=== PATIENT | male | born 1985 | race Hispanic/Latino ===

== ENCOUNTER → 2018-03-25 | Outpatient (REF) | payer OTHER, MEDICAID ==
[2018-03-25 13:32] LABS: BASO # 0.1 10^3/uL (0.0-0.2); BASO % 1.1 % (0.0-1.0); EOS # 0.3 10^3/uL (0.0-0.50); EOS % 3.2 % (0.0-3.0); HEMATOCRIT 47.3 % (42.0-52.0); HEMOGLOBIN 15.7 g/dl (13.5-17.5); IMMATURE GRANULOCYTE % 1.1 % (0-3.0); LYMPH # 3.4 10^3/uL (1.5-4.5); LYMPH % 33.8 % (24.0-44.0); MEAN CORPUSCULAR HEMOGLOBIN 29.1 pg (27.0-33.0); MEAN CORPUSCULAR HGB CONC 33.2 g/dl (32.0-36.5); MEAN CORPUSCULAR VOLUME 87.8 fl (80.0-96.0); MONO # 0.8 10^3/uL (0.0-0.8); MONO % 7.5 % (0.0-5.0); NEUTROPHILS # 5.3 10^3/uL (1.8-7.7); NEUTROPHILS % 53.3 % (36.0-66.0); PLATELET COUNT, AUTOMATED 343 10^3/uL (150-450); RED BLOOD COUNT 5.39 10^6/uL (4.30-6.10); RED CELL DISTRIBUTION WIDTH 12.7 % (11.5-14.5)
[2018-03-25 13:43] LABS: ALBUMIN 4.4 GM/DL (3.2-5.2); ALBUMIN/GLOBULIN RATIO 1.22 (1.00-1.93); ALKALINE PHOSPHATASE 86 U/L (45-117); ALT/SGPT 25 U/L (12-78); ANION GAP 5 MEQ/L (8-16); AST/SGOT 21 U/L (7-37); BILIRUBIN,TOTAL 0.7 MG/DL (0.2-1.0); BLOOD UREA NITROGEN 17 MG/DL (7-18); CALCIUM LEVEL 9.4 MG/DL (8.5-10.1); CARBON DIOXIDE LEVEL 30 MEQ/L (21-32); CHLORIDE LEVEL 101 MEQ/L (98-107); CHOLESTEROL LEVEL 216 MG/DL (<200); CHOLESTEROL RISK RATIO 5.142 (<5); CREATININE FOR GFR 1.04 MG/DL (0.70-1.30); FREE T4 1.02 NG/DL (0.76-1.46); GLOMERULAR FILTRATION RATE > 60.0 (>60); GLUCOSE, FASTING 96 MG/DL (70-100); HDL CHOLESTEROL 42 MG/DL (>40); LDL CHOLESTEROL 116 MG/DL (<100); NON-HDL-C 174 MG/DL; POTASSIUM SERUM 4.5 MEQ/L (3.5-5.1); SODIUM LEVEL 136 MEQ/L (136-145); TRIGLYCERIDES LEVEL 288 MG/DL (<150)
[2018-03-25 13:45] LABS: HEPATITIS B SURFACE ANTIBODY POSITIVE (POSITIVE)
[2018-03-25 13:55] LABS: HEPATITIS B SURFACE ANTIGEN NEGATIVE (NEGATIVE)
[2018-03-25 14:23] LABS: ESTIMATED AVERAGE GLUCOSE 120 MG/DL (60-110); HEMOGLOBIN A1c 5.8 %; HEPATITIS C VIRUS ABY INDEX 0.1 INDEX (<0.8)
[2018-03-25 14:24] LABS: HIV 1&2 SCREEN CENTAUR NEGATIVE (NEGATIVE)
[2018-03-27 00:06] LABS: HEPATITIS C QUANTITATION HCV Not Detected IU/mL (.)
== END ==
LOC: M SFHCPLAZ 11:46
DX: F32.9 Major depressive disorder, single episode, unspecified (principal); I10 Essential (primary) hypertension; E66.9 Obesity, unspecified; Z72.51 High risk heterosexual behavior; Z20.5 Contact with and (suspected) exposure to viral hepatitis
CPT/HCPCS: 84443

== ENCOUNTER → 2018-07-06 | Outpatient (REF) | payer OTHER ==
[~2018-07-06] MED LIST: DEPA500T2 PO; Effexor XR PO; NO HOME MEDICATIONS; TRAZ100T2 PO
[2018-07-06 20:18] LABS: INFLUENZA A AMPLIFICATION NEGATIVE (NEGATIVE); INFLUENZA B AMPLIFICATION NEGATIVE (NEGATIVE)
== END ==
LOC: M LAB REF 09:27
PROVIDERS: ATTEND Nurse Practitioner Family
DX: J11.1 Influenza due to unidentified influenza virus with other respiratory manifestations (principal)

== ENCOUNTER 2019-12-15 16:33 | Emergency (ER) | payer MEDICAID, OTHER ==
[~2019-12-15] VITALS: Ht 170.2 cm; Wt 79.6 kg
[2019-12-15 16:34] VITALS: BP 138/95
== END 2019-12-15 17:24 | disposition home or self-care (01) ==
LOC: M ED 16:33
DX: Z53.21 Procedure and treatment not carried out due to patient leaving prior to being seen by health care provider (principal)

== ENCOUNTER → 2020-11-12 | Outpatient (CLI) | payer OTHER ==
[2020-11-12 13:43] LABS: HEMATOCRIT 45.6 % (42.0-52.0); HEMOGLOBIN 14.4 g/dl (13.5-17.5); MEAN CORPUSCULAR HEMOGLOBIN 28.5 pg (27.0-33.0); MEAN CORPUSCULAR HGB CONC 31.6 g/dl (32.0-36.5); MEAN CORPUSCULAR VOLUME 90.1 fl (80.0-96.0); PLATELET COUNT, AUTOMATED 370 10^3/uL (150-450); RED BLOOD COUNT 5.06 10^6/uL (4.30-6.10); WHITE BLOOD COUNT 10.9 10^3/uL (4.0-10.0)
[2020-11-12 14:06] LABS: ALBUMIN 3.7 GM/DL (3.2-5.2); ALT/SGPT 39 U/L (12-78); BILIRUBIN,TOTAL 0.4 MG/DL (0.2-1.0); BLOOD UREA NITROGEN 12 MG/DL (7-18); CALCIUM LEVEL 9.1 MG/DL (8.5-10.1); CARBON DIOXIDE LEVEL 34 MEQ/L (21-32); CHLORIDE LEVEL 102 MEQ/L (98-107); CREATININE FOR GFR 0.77 MG/DL (0.70-1.30); GLOMERULAR FILTRATION RATE > 60.0 (>60); GLUCOSE, FASTING 81 MG/DL (70-100); POTASSIUM SERUM 4.4 MEQ/L (3.5-5.1); SODIUM LEVEL 138 MEQ/L (136-145); TOTAL PROTEIN 7.1 GM/DL (6.4-8.2)
[2020-11-12 14:26] LABS: HEPATITIS B SURFACE ANTIGEN NEGATIVE (NEGATIVE)
[2020-11-12 14:55] LABS: HEPATITIS C VIRUS ABY INDEX 0.1 INDEX (<0.8); HIV 1&2 SCREEN CENTAUR NEGATIVE (NEGATIVE)
[2020-11-12 15:53] LABS: GC DNA AMPLIFICATION NEGATIVE (NEGATIVE)
--- NOTE | 2020-11-13 09:35 | ECGEPIP ---
[facility] Test Date: 2020-11-12 Pat Name: SALLY CORONA Department: Room: - Gender: Male Registered Dental Hygienist: mariam : 1985 Requested By: Yossi Savage Order Number: [id number] Reading MD: Pj Lomax Measurements Intervals [place] Rate: 56 P: 61 NE: 150 QRS: 45 QRSD: 80 T: 44 QT: 436 QTc: 420 Interpretive Statements Sinus bradycardia ST ELEV, PROBABLE NORMAL EARLY REPOL PATTERN No prior tracing in the system Electronically Signed on 11-13-2020 9:35:05 EDT by Pj Lomax
== END ==
LOC: M LAB 12:46
PROVIDERS: ATTEND Family Medicine
DX: F11.20 Opioid dependence, uncomplicated (principal)

== ENCOUNTER 2022-01-23 14:08 | Inpatient (IN) | payer MEDICAID, SELFPAY ==
[~2022-01-23] VITALS: Ht 170.2 cm; Wt 85.1 kg
[2022-01-23 15:00] LABS: HEMATOCRIT 45.7 % (42.0-52.0); HEMOGLOBIN 15.2 g/dl (13.5-17.5); MEAN CORPUSCULAR HEMOGLOBIN 29.1 pg (27.0-33.0); MEAN CORPUSCULAR HGB CONC 33.3 g/dl (32.0-36.5); MEAN CORPUSCULAR VOLUME 87.4 fl (80.0-96.0); PLATELET COUNT, AUTOMATED 327 10^3/uL (150-450); RED BLOOD COUNT 5.23 10^6/uL (4.30-6.10); WHITE BLOOD COUNT 13.8 10^3/uL (4.0-10.0)
[2022-01-23 15:40] LABS: RSV AMPLIFICATION NEGATIVE (NEGATIVE)
[2022-01-23 15:47] LABS: ACETAMINOPHEN LEVEL < 2.0 UG/ML (10.0-30.0); ALBUMIN 4.3 GM/DL (3.2-5.2); ALT/SGPT 32 U/L (12-78); BILIRUBIN,DIRECT 0.2 MG/DL (0.0-0.2); BILIRUBIN,TOTAL 0.7 MG/DL (0.2-1.0); BLOOD UREA NITROGEN 27 MG/DL (7-18); CALCIUM LEVEL 9.9 MG/DL (8.5-10.1); CARBON DIOXIDE LEVEL 29 MEQ/L (21-32); CHLORIDE LEVEL 102 MEQ/L (98-107); CREATININE FOR GFR 1.02 MG/DL (0.70-1.30); ETHYL ALCOHOL (ETHANOL) 0.008 % (0.000-0.010); GLOMERULAR FILTRATION RATE > 60.0 (>60); GLUCOSE, FASTING 105 MG/DL (70-100); POTASSIUM SERUM 4.2 MEQ/L (3.5-5.1); SALICYLATE LEVEL < 1.7 MG/DL (5.0-30.0); SODIUM LEVEL 135 MEQ/L (136-145); THYROID STIMULATING HORMONE 0.428 uIU/ML (0.358-3.740); TOTAL PROTEIN 7.8 GM/DL (6.4-8.2)
[2022-01-23 18:56] LABS: AMPHETAMINES LEVEL URINE POSITIVE (NEGATIVE); BARBITURATES URINE NEGATIVE (NEGATIVE); BENZODIAZEPINES URINE NEGATIVE (NEGATIVE); CANNABINOIDS URINE POSITIVE (NEGATIVE); COCAINE METABOLITE URINE NEGATIVE (NEGATIVE); METHADONE URINE NEGATIVE (NEGATIVE); OPIATES URINE NEGATIVE (NEGATIVE); PHENCYCLIDINE URINE NEGATIVE (NEGATIVE)
[2022-01-23] MEDS ORDERED: ACETAMINOPHEN TAB 650MG DOSE (2X325MG) PO PRN (19:45)
[2022-01-23] MEDS ORDERED: MOM 30ML SUSPENSION UDC PO PRN (19:45)
[2022-01-23] MEDS ORDERED: OLANZapine ORAL DISINTEGRATING TAB 5MG PO PRN (19:45)
[2022-01-23] MEDS ORDERED: MAALOX 30 ML SUSP *UDC PO PRN (19:45)
[2022-01-23] MEDS ORDERED: VITMTA PO (20:32)
[2022-01-23] MEDS ORDERED: TUMS500C PO (20:32)
[2022-01-23] MEDS ORDERED: ACET32TAB PO (20:32)
[2022-01-23] MEDS ORDERED: HOME MED LIST COMPLETE! XX SCH (20:35)
[2022-01-24 00:06] VITALS: BP 142/88
[2022-01-24 16:07] VITALS: BP 142/78
[2022-01-25 06:45] VITALS: BP 106/62
[2022-01-25 06:59] LABS: HEMATOCRIT 43.1 % (42.0-52.0); HEMOGLOBIN 13.7 g/dl (13.5-17.5); MEAN CORPUSCULAR HEMOGLOBIN 28.8 pg (27.0-33.0); MEAN CORPUSCULAR HGB CONC 31.8 g/dl (32.0-36.5); MEAN CORPUSCULAR VOLUME 90.7 fl (80.0-96.0); PLATELET COUNT, AUTOMATED 293 10^3/uL (150-450); RED BLOOD COUNT 4.75 10^6/uL (4.30-6.10); WHITE BLOOD COUNT 8.1 10^3/uL (4.0-10.0)
[2022-01-25] MEDS: LIDOCAINE 5% (LIDODERM) PATCH TD SCH (09:12)
[2022-01-25 16:29] VITALS: BP 137/72
[2022-01-25] MEDS: **NOTE PATIENT COMMENT** MISC XX SCH (21:25)
[2022-01-25] MEDS: OLANZapine 5 MG TAB PO SCH (21:26)
[2022-01-25] MEDS: traZODone 50 MG TAB PO PRN (21:26)
[2022-01-26 06:33] VITALS: BP 115/66
[2022-01-26] MEDS: OLANZapine 5 MG TAB PO SCH ×2 (09:15→22:08)
[2022-01-26] MEDS: LIDOCAINE 5% (LIDODERM) PATCH TD SCH (09:15)
[2022-01-26 18:47] VITALS: BP 140/67
[2022-01-26] MEDS: **NOTE PATIENT COMMENT** MISC XX SCH (21:00)
[2022-01-27 06:19] VITALS: BP 135/69
[2022-01-27] MEDS: LIDOCAINE 5% (LIDODERM) PATCH TD SCH (10:01)
[2022-01-27] MEDS: OLANZapine 5 MG TAB PO SCH (10:01)
[2022-01-27 16:12] VITALS: BP 142/77
[2022-01-27] MEDS: **NOTE PATIENT COMMENT** MISC XX SCH (21:18)
[2022-01-27] MEDS: OLANZapine 10 MG TAB PO SCH (21:18)
[2022-01-27] MEDS: traZODone 50 MG TAB PO PRN (21:19)
[2022-01-27] MEDS: hydrOXYzine 50 MG TAB PO PRN (21:19)
[2022-01-28 06:35] VITALS: BP 135/67
[2022-01-28] MEDS: LIDOCAINE 5% (LIDODERM) PATCH TD SCH (08:34)
[2022-01-28] MEDS: OLANZapine 5 MG TAB PO SCH (08:35)
[2022-01-28 08:48] LABS: CHOLESTEROL RISK RATIO 3.574 (<5)
[2022-01-28] MEDS: hydrOXYzine 50 MG TAB PO PRN (11:58)
[2022-01-28 16:23] VITALS: BP 144/88
[2022-01-28] MEDS: **NOTE PATIENT COMMENT** MISC XX SCH (20:02)
[2022-01-28] MEDS: OLANZapine 10 MG TAB PO SCH (20:03)
[2022-01-28] MEDS: traZODone 50 MG TAB PO PRN (22:41)
[2022-01-29 06:26] VITALS: BP 106/61
[2022-01-29] MEDS: OLANZapine 5 MG TAB PO SCH (08:41)
[2022-01-29] MEDS: LIDOCAINE 5% (LIDODERM) PATCH TD SCH (08:41)
[2022-01-29] MEDS: hydrOXYzine 50 MG TAB PO PRN (13:24)
[2022-01-29 16:15] VITALS: BP 136/72
[2022-01-29] MEDS: **NOTE PATIENT COMMENT** MISC XX SCH (20:43)
[2022-01-29] MEDS: OLANZapine 10 MG TAB PO SCH (20:45)
[2022-01-29] MEDS: traZODone 50 MG TAB PO PRN (20:45)
[2022-01-30 06:09] VITALS: BP 127/74
[2022-01-30] MEDS: LIDOCAINE 5% (LIDODERM) PATCH TD SCH (08:38)
[2022-01-30] MEDS: OLANZapine 5 MG TAB PO SCH (08:38)
[2022-01-30] MEDS: hydrOXYzine 50 MG TAB PO PRN (11:27)
[2022-01-30] MEDS: **NOTE PATIENT COMMENT** MISC XX SCH (12:23)
[2022-01-30 18:09] VITALS: BP 132/75
[2022-01-30] MEDS: OLANZapine 10 MG TAB PO SCH (20:26)
[2022-01-30] MEDS: traZODone 50 MG TAB PO PRN (22:17)
[2022-01-31 06:25] VITALS: BP 145/86
[2022-01-31] MEDS: OLANZapine 5 MG TAB PO SCH (09:14)
[2022-01-31] MEDS: LIDOCAINE 5% (LIDODERM) PATCH TD SCH (09:14)
[2022-01-31] MEDS: hydrOXYzine 50 MG TAB PO PRN (17:17)
[2022-01-31 18:07] VITALS: BP 141/83
[2022-01-31] MEDS: traZODone 50 MG TAB PO PRN (20:33)
[2022-01-31] MEDS: OLANZapine 10 MG TAB PO SCH (20:33)
[2022-01-31] MEDS: **NOTE PATIENT COMMENT** MISC XX SCH (20:38)
[2022-02-01 05:59] VITALS: BP 131/82
[2022-02-01] MEDS: LIDOCAINE 5% (LIDODERM) PATCH TD SCH (08:21)
[2022-02-01] MEDS: OLANZapine 5 MG TAB PO SCH (08:21)
[2022-02-01] MEDS: hydrOXYzine 50 MG TAB PO PRN (13:02)
[2022-02-01 17:51] VITALS: BP 136/61
[2022-02-01] MEDS: OLANZapine 10 MG TAB PO SCH (21:03)
[2022-02-01] MEDS: traZODone 50 MG TAB PO PRN (21:03)
[2022-02-01] MEDS: **NOTE PATIENT COMMENT** MISC XX SCH (21:04)
[2022-02-02 06:10] VITALS: BP 148/66
[2022-02-02] MEDS: LIDOCAINE 5% (LIDODERM) PATCH TD SCH (08:57)
[2022-02-02] MEDS: OLANZapine 5 MG TAB PO SCH (08:57)
[2022-02-02] MEDS: hydrOXYzine 50 MG TAB PO PRN (13:23)
[2022-02-02 18:12] VITALS: BP 150/74
[2022-02-02] MEDS: OLANZapine 10 MG TAB PO SCH (21:05)
[2022-02-02] MEDS: **NOTE PATIENT COMMENT** MISC XX SCH (21:59)
[2022-02-03 06:03] VITALS: BP 137/75
[2022-02-03] MEDS: OLANZapine 5 MG TAB PO SCH (08:50)
[2022-02-03] MEDS: LIDOCAINE 5% (LIDODERM) PATCH TD SCH (08:51)
[2022-02-03] MEDS ORDERED: TRAZ-252 PO (09:02)
[2022-02-03] MEDS ORDERED: OLAN1TAB16 PO (09:02)
[2022-02-03] MEDS ORDERED: OLAN1TAB20 PO (09:02)
[2022-02-03] MEDS ORDERED: LIDO5TD TD (09:02)
[2022-02-03] MEDS ORDERED: HYDR50TA70 PO (09:02)
[2022-02-03] MEDS: hydrOXYzine 50 MG TAB PO PRN (11:24)
== END 2022-02-03 14:17 | disposition home or self-care (01) | DRG 751 ==
LOC: M ED 14:08 → M ED INP 19:44 → M PSY 23:36
PROVIDERS: ADMIT Psychiatry & Neurology Psychiatry; ATTEND Psychiatry & Neurology Psychiatry
DX: F29 Unspecified psychosis not due to a substance or known physiological condition (principal); F22 Delusional disorders; F31.9 Bipolar disorder, unspecified; F60.2 Antisocial personality disorder; F43.10 Post-traumatic stress disorder, unspecified; F25.0 Schizoaffective disorder, bipolar type; Z20.822 Contact with and (suspected) exposure to COVID-19; R45.851 Suicidal ideations; R45.850 Homicidal ideations; Z91.51 Personal history of suicidal behavior; F17.210 Nicotine dependence, cigarettes, uncomplicated; G43.909 Migraine, unspecified, not intractable, without status migrainosus; F32.A Depression, unspecified; F41.9 Anxiety disorder, unspecified; K29.70 Gastritis, unspecified, without bleeding; M54.50 Low back pain, unspecified

== ENCOUNTER 2022-04-11 15:18 | Emergency (ER) | payer OTHER, SELFPAY ==
[~2022-04-11] VITALS: Ht 170.2 cm; Wt 85.5 kg
[~2022-04-11 15:18] MED LIST changes: +ACET32TAB PO; +HYDR50TA70 PO; +LIDO5TD TD; +OLAN1TAB16 PO; +OLAN1TAB20 PO; +TRAZ-252 PO; +TUMS500C PO; +VITMTA PO
[2022-04-11 15:22] VITALS: BP 130/72
== END 2022-04-11 23:46 | disposition left against medical advice (07) ==
LOC: M ED 15:18
DX: Z53.21 Procedure and treatment not carried out due to patient leaving prior to being seen by health care provider (principal)

== ENCOUNTER 2022-04-12 10:28 | Emergency (ER) | payer OTHER ==
[~2022-04-12] VITALS: Ht 170.2 cm; Wt 84.2 kg
[2022-04-12 10:29] VITALS: BP 146/75
[2022-04-12 13:50] LABS: HEPATITIS B SURFACE ANTIGEN NEGATIVE (NEGATIVE)
[2022-04-12 14:11] LABS: HEPATITIS C VIRUS ABY INDEX 0.1 INDEX (<0.8)
[2022-04-12 14:12] LABS: HEPATITIS B CORE ANTIBODY IGM NEGATIVE (NEGATIVE)
[2022-04-12 18:53] LABS: HIV SCREEN CENTAUR EXPOSED NEGATIVE (NEGATIVE)
== END 2022-04-12 13:45 | disposition home or self-care (01) ==
LOC: M ED 10:28
DX: T33.539A Superficial frostbite of unspecified finger(s), initial encounter (principal); X31.XXXA Exposure to excessive natural cold, initial encounter; F19.10 Other psychoactive substance abuse, uncomplicated

== ENCOUNTER 2022-04-21 02:21 | Inpatient (IN) | payer OTHER ==
[2022-04-21] VITALS (77 sets, daily range): BP systolic 75–139; BP diastolic 40–66; O2SAT 93–95
[~2022-04-21] VITALS: Ht 177.8 cm; Wt 84.0 kg
[2022-04-21] MEDS ORDERED: LORazepam 2 MG/ML VIAL IV STA (02:35)
[2022-04-21] MEDS ORDERED: ONDANSETRON 4MG 2ML VIAL IV ONE (02:35)
[2022-04-21] MEDS ORDERED: PROPOFOL 1,000 MG/100 ML VIAL As Ordered ONE ×2 (02:48→06:11)
[2022-04-21] MEDS ORDERED: ETOMIDATE INJ 20MG/10ML VIAL IV STA (02:48)
[2022-04-21] MEDS ORDERED: ROCURONIUM BROMIDE 50MG/5ML VIAL IV SCH (02:50)
[2022-04-21 02:57] LABS: BASO # 0.1 10^3/uL (0.0-0.2); BASO % 0.4 % (0.0-1.0); EOS # 0.2 10^3/uL (0.0-0.5); EOS % 1.1 % (0.0-3.0); HEMATOCRIT 47.6 % (42.0-52.0); HEMOGLOBIN 14.7 g/dl (13.5-17.5); LYMPH # 2.8 10^3/uL (1.5-5.0); LYMPH % 20.8 % (24.0-44.0); MEAN CORPUSCULAR HEMOGLOBIN 28.5 pg (27.0-33.0); MEAN CORPUSCULAR HGB CONC 30.9 g/dl (32.0-36.5); MEAN CORPUSCULAR VOLUME 92.2 fl (80.0-96.0); MONO # 0.7 10^3/uL (0.0-0.8); MONO % 5.1 % (2.0-8.0); NEUTROPHILS # 9.7 10^3/uL (1.5-8.5); NEUTROPHILS % 71.6 % (36.0-66.0); PLATELET COUNT, AUTOMATED 348 10^3/uL (150-450); RED BLOOD COUNT 5.16 10^6/uL (4.30-6.10); WHITE BLOOD COUNT 13.6 10^3/uL (4.0-10.0)
[2022-04-21] MEDS ORDERED: propofoL 1,000 MG in IV 1 EA IV SCH ×3 (03:00→06:10)
[2022-04-21 03:22] LABS: ABG BASE EXCESS -2.8 (-2.0-2.0); ABG HCO3 23.8 MEQ/L (22.0-26.0); ABG O2 SATURATION 97.6 % (95.0-99.0); ABG PARTIAL PRESSURE CO2 48.3 mmHg (35.0-45.0); ABG PARTIAL PRESSURE O2 110.9 mmHg (75.0-100.0); ABG STANDARD HCO3 22.1 MEQ/L (22.0-26.0); ABG TOTAL CO2 25.3 MEQ/L (22.0-29.0); ABG pH (ARTERIAL) 7.311 UNITS (7.350-7.450)
[2022-04-21] MEDS ORDERED: NS 2,520 ML in IV 1 EA IV ONE (03:25)
[2022-04-21 03:34] LABS: ETHYL ALCOHOL (ETHANOL) 0.003 % (0.000-0.010)
[2022-04-21 03:36] LABS: ACETAMINOPHEN LEVEL < 2.0 UG/ML (10.0-20.0); ALBUMIN 4.4 G/DL (3.2-5.2); ALKALINE PHOSPHATASE 100 U/L (46-116); ALT/SGPT 55 U/L (7.0-40); AST/SGOT 93 U/L (<34); BILIRUBIN,DIRECT 0.6 MG/DL (<0.4); BILIRUBIN,TOTAL 2.1 MG/DL (0.3-1.2); BLOOD UREA NITROGEN 28 MG/DL (9-23); CALCIUM LEVEL 9.4 MG/DL (8.5-10.1); CARBON DIOXIDE LEVEL 24 MMOL/L (20-31); CHLORIDE LEVEL 99 MMOL/L (98-107); CREATININE FOR GFR 1.28 MG/DL (0.70-1.30); GLOMERULAR FILTRATION RATE > 60.0 (>60); GLUCOSE, FASTING 159 MG/DL (60-100); POTASSIUM SERUM 4.7 MMOL/L (3.5-5.1); SALICYLATE LEVEL < 3.0 MG/DL (<30); SODIUM LEVEL 139 MMOL/L (136-145); TOTAL PROTEIN 8.2 G/DL (5.7-8.2)
[2022-04-21 03:38] LABS: THYROID STIMULATING HORMONE 3.471 uIU/ML (0.55-4.78)
[2022-04-21 03:40] LABS: CPK CREATINE PHOSPHOKINASE 950 U/L (46-171)
[2022-04-21 03:44] LABS: BARBITURATES URINE NEGATIVE (NEGATIVE); BENZODIAZEPINES URINE NEGATIVE (NEGATIVE); COCAINE METABOLITE URINE NEGATIVE (NEGATIVE); METHADONE URINE NEGATIVE (NEGATIVE); OPIATES URINE NEGATIVE (NEGATIVE); PHENCYCLIDINE URINE NEGATIVE (NEGATIVE)
[2022-04-21 03:49] LABS: AMPHETAMINES LEVEL URINE POSITIVE (NEGATIVE); CANNABINOIDS URINE POSITIVE (NEGATIVE)
[2022-04-21 03:53] LABS: APPEARANCE, URINE MANUAL CLEAR (CLEAR); COLOR, URINE MANUAL YELLOW (YELLOW)
[2022-04-21 03:54] LABS: BILIRUBIN, URINE MANUAL 1+ (NEGATIVE); BLOOD URINE MANUAL NEGATIVE (NEGATIVE); GLUCOSE, URINE (UA) MANUAL NEGATIVE (NEGATIVE); KETONE, URINE MANUAL 1+ mg/dL (NEGATIVE); NITRITE, URINE MANUAL NEGATIVE (NEGATIVE); PROTEIN, URINE MANUAL NEGATIVE (NEGATIVE); SPECIFIC GRAVITY,URINE MANUAL 1.025 (1.002-1.035); UROBILINOGEN, URINE MANUAL NORMAL (NORMAL)
[2022-04-21 03:55] LABS: LEUKOCYTE ESTERASE, URINE MAN NEGATIVE (NEGATIVE)
[2022-04-21 04:26] LABS: RSV AMPLIFICATION NEGATIVE (NEGATIVE)
[2022-04-21] MEDS ORDERED: MIDAZOLAM 100MG/100ML-0.9%NACL 100 MG in IV 1 EA IV SCH (04:45)
[2022-04-21] MEDS ORDERED: NS 1,000 ML IV SCH (04:45)
[2022-04-21] MEDS ORDERED: MIDAZOLAM 5MG/ML 1ML VIAL IV STA (05:40)
[2022-04-21] MEDS ORDERED: LevoFLOXacin 500 MG TABLET PO SCH (06:00)
[2022-04-21 07:20] LABS: ABG BASE EXCESS -3.5 (-2.0-2.0); ABG HCO3 22.9 MEQ/L (22.0-26.0); ABG O2 SATURATION 93.8 % (95.0-99.0); ABG PARTIAL PRESSURE CO2 46.3 mmHg (35.0-45.0); ABG PARTIAL PRESSURE O2 74.8 mmHg (75.0-100.0); ABG STANDARD HCO3 21.5 MEQ/L (22.0-26.0); ABG TOTAL CO2 24.3 MEQ/L (22.0-29.0); ABG pH (ARTERIAL) 7.312 UNITS (7.350-7.450)
[2022-04-21] MEDS ORDERED: CHLORHEXIDINE GLUCONATE 0.12 % 15ML UDC (PERIDEX ORAL RINSE) MT SCH (09:00)
[2022-04-21] MEDS ORDERED: NS 1,000 ML IV ONE ×2 (11:10→16:30)
[2022-04-21] MEDS ORDERED: HEPARIN SOD (PORCINE) 5000UNITS/ML 1ML VIAL/SYRINGE SC SCH (14:00)
[2022-04-21] MEDS: ACETAMINOPHEN 325 MG TAB PO PRN (14:57)
[2022-04-21] MEDS: ENOXAPARIN 40MG/0.4ML SYRINGE (J1650 PER 10MG) SC SCH (14:59)
[2022-04-21] MEDS: PANTOPRAZOLE 40MG VIAL IV SCH (14:59)
[2022-04-21] MEDS: NOREPINEPHRINE 4MG IN D5 250ML 4 MG in IV 1 EA IV SCH ×6 (17:45→22:12)
[2022-04-21] MEDS ORDERED: VANCOMYCIN HCL 1,000 MG, VIAL MATE ADAPTER 1 EACH in NS 250 ML IV ONE (18:00)
[2022-04-21 18:41] LABS: ABG HCO3 18.7 MEQ/L (22.0-26.0); ABG O2 SATURATION 94.1 % (95.0-99.0); ABG PARTIAL PRESSURE CO2 30.5 mmHg (35.0-45.0); ABG PARTIAL PRESSURE O2 66.9 mmHg (75.0-100.0); ABG STANDARD HCO3 20.3 MEQ/L (22.0-26.0); ABG TOTAL CO2 19.6 MEQ/L (22.0-29.0); ABG pH (ARTERIAL) 7.405 UNITS (7.350-7.450)
[2022-04-21] MEDS ORDERED: VASOPRESSIN INJ 20 UNITS in NS 499 ML IV SCH (19:00)
[2022-04-21 19:15] LABS: ALBUMIN 2.5 G/DL (3.2-5.2); ALKALINE PHOSPHATASE 49 U/L (46-116); ALT/SGPT 34 U/L (7.0-40); AST/SGOT 78 U/L (<34); BILIRUBIN,TOTAL 2.7 MG/DL (0.3-1.2); BLOOD UREA NITROGEN 23 MG/DL (9-23); CALCIUM LEVEL 6.5 MG/DL (8.5-10.1); CARBON DIOXIDE LEVEL 22 MMOL/L (20-31); CHLORIDE LEVEL 98 MMOL/L (98-107); CK-MB VALUE MASS 5.8 NG/ML (<3.6); CPK CREATINE PHOSPHOKINASE 2012 U/L (46-171); CREATININE FOR GFR 1.26 MG/DL (0.70-1.30); GLOMERULAR FILTRATION RATE > 60.0 (>60); GLUCOSE, FASTING 138 MG/DL (60-100); MB/CK RELATIVE INDEX 0.28 (< OR =4); POTASSIUM SERUM 3.5 MMOL/L (3.5-5.1); SODIUM LEVEL 129 MMOL/L (136-145)
[2022-04-21] MEDS: PIPERACILLIN/TAZOBACTAM SOD 3.375 GM in D5W MINI-BAG PLUS 50 ML IV SCH (19:59)
[2022-04-21] MEDS: VANCOMYCIN HCL 1,000 MG, VIAL MATE ADAPTER 1 EACH in NS 250 ML IV SCH (22:11)
[2022-04-22] VITALS (62 sets, daily range): BP systolic 86–122; BP diastolic 46–71
[2022-04-22] MEDS: NOREPINEPHRINE 4MG IN D5 250ML 4 MG in IV 1 EA IV SCH ×4 (00:21→02:49)
[2022-04-22] MEDS: PIPERACILLIN/TAZOBACTAM SOD 3.375 GM in D5W MINI-BAG PLUS 50 ML IV SCH ×4 (02:52→20:05)
[2022-04-22] MEDS: VANCOMYCIN HCL 1,000 MG, VIAL MATE ADAPTER 1 EACH in NS 250 ML IV SCH ×3 (05:17→22:18)
[2022-04-22 05:34] LABS: HEMATOCRIT 35.7 % (42.0-52.0); MEAN CORPUSCULAR HEMOGLOBIN 28.3 pg (27.0-33.0); MEAN CORPUSCULAR HGB CONC 32.2 g/dl (32.0-36.5); MEAN CORPUSCULAR VOLUME 87.7 fl (80.0-96.0); PLATELET COUNT, AUTOMATED 198 10^3/uL (150-450); RED BLOOD COUNT 4.07 10^6/uL (4.30-6.10); WHITE BLOOD COUNT 28.1 10^3/uL (4.0-10.0)
[2022-04-22 05:45] LABS: HEMOGLOBIN 11.5 g/dl (13.5-17.5)
[2022-04-22 05:56] LABS: ATYPICAL LYMPH 3 % (0-5); LYMPHOCYTES 2 % (16-44); METAMYELOCYTES 7 % (0-0); MONOCYTES 5 % (0-5); MYELOCYTES 2 % (0-0); NEUTROPHILS 69 % (28-66); PLATELET CLUMPS SMALL AMT; PLATELET ESTIMATE NORMAL (NORMAL)
[2022-04-22 05:57] LABS: MAGNESIUM LEVEL 1.5 MG/DL (1.8-2.4)
[2022-04-22 05:58] LABS: TOXIC GRANULATION 1+; TOXIC VACUOLATION 1+
[2022-04-22 06:09] LABS: ALBUMIN 2.6 G/DL (3.2-5.2); ALKALINE PHOSPHATASE 65 U/L (46-116); ALT/SGPT 41 U/L (7.0-40); AST/SGOT 72 U/L (<34); BILIRUBIN,TOTAL 2.8 MG/DL (0.3-1.2); BLOOD UREA NITROGEN 20 MG/DL (9-23); CARBON DIOXIDE LEVEL 24 MMOL/L (20-31); CHLORIDE LEVEL 102 MMOL/L (98-107); CREATININE FOR GFR 0.97 MG/DL (0.70-1.30); GLOMERULAR FILTRATION RATE > 60.0 (>60); GLUCOSE, FASTING 110 MG/DL (60-100); PHOSPHORUS LEVEL 2.6 MG/DL (2.5-4.9); POTASSIUM SERUM 3.8 MMOL/L (3.5-5.1); SODIUM LEVEL 133 MMOL/L (136-145); TOTAL PROTEIN 5.3 G/DL (5.7-8.2)
[2022-04-22] MEDS: MAG SULF 1GM/100ML (MAG RUN) 1 GM in IV 1 EA IV SCH ×2 (06:33→08:09)
[2022-04-22] MEDS ORDERED: MAG SULF 1GM/100ML (MAG RUN) 1 GM in IV 1 EA IV ONE (08:00)
[2022-04-22] MEDS ORDERED: HOME MED LIST COMPLETE! XX SCH (08:40)
[2022-04-22] MEDS: PANTOPRAZOLE 40MG VIAL IV SCH (09:26)
[2022-04-22] MEDS: ENOXAPARIN 40MG/0.4ML SYRINGE (J1650 PER 10MG) SC SCH (09:27)
[2022-04-22] MEDS: ACETAMINOPHEN 325 MG TAB PO PRN (14:22)
[2022-04-23] VITALS (13 sets, daily range): BP systolic 95–128; BP diastolic 52–68
[2022-04-23] MEDS: PIPERACILLIN/TAZOBACTAM SOD 3.375 GM in D5W MINI-BAG PLUS 50 ML IV SCH ×4 (02:04→20:50)
[2022-04-23 05:19] LABS: HEMATOCRIT 32.6 % (42.0-52.0); HEMOGLOBIN 10.8 g/dl (13.5-17.5); MEAN CORPUSCULAR HEMOGLOBIN 28.7 pg (27.0-33.0); MEAN CORPUSCULAR HGB CONC 33.1 g/dl (32.0-36.5); MEAN CORPUSCULAR VOLUME 86.7 fl (80.0-96.0); PLATELET COUNT, AUTOMATED 205 10^3/uL (150-450); RED BLOOD COUNT 3.76 10^6/uL (4.30-6.10); WHITE BLOOD COUNT 27.9 10^3/uL (4.0-10.0)
[2022-04-23 05:42] LABS: BLOOD UREA NITROGEN 11 MG/DL (9-23); CALCIUM LEVEL 7.6 MG/DL (8.5-10.1); CARBON DIOXIDE LEVEL 28 MMOL/L (20-31); CHLORIDE LEVEL 105 MMOL/L (98-107); GLOMERULAR FILTRATION RATE > 60.0 (>60); GLUCOSE, FASTING 98 MG/DL (60-100); POTASSIUM SERUM 3.2 MMOL/L (3.5-5.1); SODIUM LEVEL 138 MMOL/L (136-145)
[2022-04-23] MEDS: VANCOMYCIN HCL 750 MG, VIAL MATE ADAPTER 1 EACH in D5W 250 ML IV SCH ×3 (06:31→22:07)
[2022-04-23 06:53] LABS: MAGNESIUM LEVEL 2.3 MG/DL (1.8-2.4)
[2022-04-23 06:55] LABS: ATYPICAL LYMPH 4 % (0-5); EOSINOPHILS 1 % (0-3); LYMPHOCYTES 4 % (16-44); METAMYELOCYTES 1 % (0-0); MONOCYTES 1 % (0-5); NEUTROPHILS 78 % (28-66)
[2022-04-23 07:00] LABS: BURR CELLS 1+; PLATELET ESTIMATE NORMAL (NORMAL); POLYCHROMASIA 1+
[2022-04-23] MEDS ORDERED: KCL 20MEQ IN 100ML SWI (KRUN) 20 MEQ in IV 1 EA IV ONE ×2 (08:00)
[2022-04-23] MEDS: VANCOMYCIN HCL 500 MG in D5W MINI-BAG PLUS 100 ML IV SCH ×3 (08:06→23:40)
[2022-04-23] MEDS: ENOXAPARIN 40MG/0.4ML SYRINGE (J1650 PER 10MG) SC SCH (09:10)
[2022-04-23] MEDS: ACETAMINOPHEN 325 MG TAB PO PRN (11:17)
[2022-04-23] MEDS ORDERED: POTASSIUM CHLORIDE 10MEQ SR TABLET PO ONE (17:00)
[2022-04-23] MEDS ORDERED: guaiFENesin SYRUP 200MG 10ML UDC PO PRN (17:30)
[2022-04-23] MEDS ORDERED: guaiFENesin 200 MG TAB PO PRN (18:35)
[2022-04-24 00:13] VITALS: BP 110/62
[2022-04-24] MEDS: PIPERACILLIN/TAZOBACTAM SOD 3.375 GM in D5W MINI-BAG PLUS 50 ML IV SCH ×2 (01:39→09:28)
[2022-04-24 04:22] VITALS: BP 120/69
[2022-04-24] MEDS: VANCOMYCIN HCL 750 MG, VIAL MATE ADAPTER 1 EACH in D5W 250 ML IV SCH (05:21)
[2022-04-24] MEDS: VANCOMYCIN HCL 500 MG in D5W MINI-BAG PLUS 100 ML IV SCH (06:27)
[2022-04-24 07:47] LABS: BASO # 0.2 10^3/uL (0.0-0.2); BASO % 0.8 % (0.0-1.0); EOS # 0.6 10^3/uL (0.0-0.5); EOS % 2.6 % (0.0-3.0); HEMATOCRIT 36.1 % (42.0-52.0); HEMOGLOBIN 11.8 g/dl (13.5-17.5); LYMPH # 2.7 10^3/uL (1.5-5.0); LYMPH % 12.6 % (24.0-44.0); MEAN CORPUSCULAR HEMOGLOBIN 28.5 pg (27.0-33.0); MEAN CORPUSCULAR HGB CONC 32.7 g/dl (32.0-36.5); MEAN CORPUSCULAR VOLUME 87.2 fl (80.0-96.0); MONO # 1.1 10^3/uL (0.0-0.8); MONO % 5.2 % (2.0-8.0); NEUTROPHILS # 16.3 10^3/uL (1.5-8.5); NEUTROPHILS % 77.1 % (36.0-66.0); PLATELET COUNT, AUTOMATED 254 10^3/uL (150-450); RED BLOOD COUNT 4.14 10^6/uL (4.30-6.10); WHITE BLOOD COUNT 21.2 10^3/uL (4.0-10.0)
[2022-04-24 08:15] LABS: BLOOD UREA NITROGEN 8 MG/DL (9-23); CALCIUM LEVEL 8.2 MG/DL (8.5-10.1); CARBON DIOXIDE LEVEL 25 MMOL/L (20-31); CHLORIDE LEVEL 107 MMOL/L (98-107); GLOMERULAR FILTRATION RATE > 60.0 (>60); GLUCOSE, FASTING 105 MG/DL (60-100); POTASSIUM SERUM 3.7 MMOL/L (3.5-5.1); SODIUM LEVEL 139 MMOL/L (136-145)
[2022-04-24] MEDS: AUGMENTIN 875 MG TAB PO SCH ×2 (09:00→20:46)
[2022-04-24] MEDS: ENOXAPARIN 40MG/0.4ML SYRINGE (J1650 PER 10MG) SC SCH (09:29)
[2022-04-24 12:00] VITALS: BP 112/80
[2022-04-24] MEDS ORDERED: AUGMENTIN 500MG TAB PO SCH (14:00)
[2022-04-24 19:46] VITALS: BP 116/57
[2022-04-25 04:20] VITALS: BP 122/56
[2022-04-25 04:34] LABS: HEMATOCRIT 38.4 % (42.0-52.0); HEMOGLOBIN 12.6 g/dl (13.5-17.5); MEAN CORPUSCULAR HGB CONC 32.8 g/dl (32.0-36.5); MEAN CORPUSCULAR VOLUME 85.3 fl (80.0-96.0); PLATELET COUNT, AUTOMATED 296 10^3/uL (150-450); WHITE BLOOD COUNT 16.9 10^3/uL (4.0-10.0)
[2022-04-25 05:03] LABS: BLOOD UREA NITROGEN 11 MG/DL (9-23); CALCIUM LEVEL 8.6 MG/DL (8.5-10.1); CARBON DIOXIDE LEVEL 24 MMOL/L (20-31); CHLORIDE LEVEL 104 MMOL/L (98-107); CREATININE FOR GFR 0.69 MG/DL (0.70-1.30); GLOMERULAR FILTRATION RATE > 60.0 (>60); GLUCOSE, FASTING 93 MG/DL (60-100); POTASSIUM SERUM 3.9 MMOL/L (3.5-5.1); SODIUM LEVEL 137 MMOL/L (136-145)
[2022-04-25 05:14] LABS: BLAST CELLS 3 % (0-0); EOSINOPHILS 9 % (0-3); LYMPHOCYTES 19 % (16-44); METAMYELOCYTES 1 % (0-0); MONOCYTES 13 % (0-5); MYELOCYTES 6 % (0-0); NEUTROPHILS 43 % (28-66); NUCLEATED RED BLOOD CELL 1 % (0-0); PROMYELOCYTES 2 % (0-0)
[2022-04-25 05:15] LABS: PLATELET ESTIMATE NORMAL (NORMAL)
[2022-04-25 08:00] VITALS: BP 124/72
[2022-04-25] MEDS: AUGMENTIN 875 MG TAB PO SCH (08:27)
[2022-04-25] MEDS: ACETAMINOPHEN 325 MG TAB PO PRN (08:27)
[2022-04-25] MEDS: ENOXAPARIN 40MG/0.4ML SYRINGE (J1650 PER 10MG) SC SCH (08:28)
[2022-04-25] MEDS ORDERED: LIDOCAINE 5% (LIDODERM) PATCH TD PRN (09:20)
[2022-04-25] MEDS ORDERED: AMOX875T2 PO (10:48)
[2022-04-25] MEDS ORDERED: FLUBLOK(EGG FREE)(QUAD)INFLUENZA VACC 0.5ML SYRINGE 18YRS & OLDER IM ONE (11:45)
[2022-04-25] MEDS ORDERED: INFLUENZA QUADRIVALENT PF VACCINE 0.5ML SYRINGE IM.IMMUN ONE (12:00)
== END 2022-04-25 12:46 | disposition home or self-care (01) | DRG 816 ==
LOC: M ED 02:21 → EDBD 02:21 → M ED INP 04:45 → ENRESERV 05:37 → M ICU 05:54
PROVIDERS: ADMIT Internal Medicine Pulmonary Disease; ATTEND Internal Medicine
PROC: 0BH13EZ Insertion of Endotracheal Airway into Trachea, Percutaneous Approach (ICD-10-PCS; principal; 2022-04-21)
PROC: 5A1945Z Respiratory Ventilation, 24-96 Consecutive Hours (ICD-10-PCS; 2022-04-21)
PROC: 02HV33Z Insertion of Infusion Device into Superior Vena Cava, Percutaneous Approach (ICD-10-PCS; 2022-04-21)
PROC: B246ZZZ Ultrasonography of Right and Left Heart (ICD-10-PCS; 2022-04-22)
DX: T40.1X1A Poisoning by heroin, accidental (unintentional), initial encounter (principal); J96.01 Acute respiratory failure with hypoxia; J18.9 Pneumonia, unspecified organism; G92.9 Unspecified toxic encephalopathy; A41.9 Sepsis, unspecified organism; G93.41 Metabolic encephalopathy; I95.9 Hypotension, unspecified; R57.0 Cardiogenic shock; E87.20 Acidosis, unspecified; R65.21 Severe sepsis with septic shock; E46 Unspecified protein-calorie malnutrition; M62.82 Rhabdomyolysis; Z78.1 Physical restraint status; E83.42 Hypomagnesemia; E87.1 Hypo-osmolality and hyponatremia; K56.7 Ileus, unspecified; R00.0 Tachycardia, unspecified; F41.9 Anxiety disorder, unspecified; F32.A Depression, unspecified; F17.200 Nicotine dependence, unspecified, uncomplicated; R74.01 Elevation of levels of liver transaminase levels; D64.9 Anemia, unspecified; R21 Rash and other nonspecific skin eruption; E87.6 Hypokalemia; Z20.822 Contact with and (suspected) exposure to COVID-19; Z90.49 Acquired absence of other specified parts of digestive tract

== ENCOUNTER → 2022-04-28 | Outpatient (REF) | payer OTHER ==
[~2022-04-28] MED LIST changes: +AMOX875T2 PO
[2022-04-28 17:48] LABS: HEMATOCRIT 44.6 % (42.0-52.0); HEMOGLOBIN 14.1 g/dl (13.5-17.5); MEAN CORPUSCULAR HEMOGLOBIN 28.4 pg (27.0-33.0); MEAN CORPUSCULAR HGB CONC 31.6 g/dl (32.0-36.5); MEAN CORPUSCULAR VOLUME 89.7 fl (80.0-96.0); PLATELET COUNT, AUTOMATED 561 10^3/uL (150-450); RED BLOOD COUNT 4.97 10^6/uL (4.30-6.10); WHITE BLOOD COUNT 22.5 10^3/uL (4.0-10.0)
[2022-04-28 18:20] LABS: HEMOGLOBIN A1c 5.2 % (4.0-6.0)
[2022-04-28 18:22] LABS: ALBUMIN 3.5 G/DL (3.2-5.2); ALKALINE PHOSPHATASE 141 U/L (46-116); ALT/SGPT 57 U/L (7.0-40); AST/SGOT 29 U/L (<34); BILIRUBIN,TOTAL 0.3 MG/DL (0.3-1.2); BLOOD UREA NITROGEN 18 MG/DL (9-23); CALCIUM LEVEL 8.9 MG/DL (8.5-10.1); CARBON DIOXIDE LEVEL 26 MMOL/L (20-31); CHLORIDE LEVEL 97 MMOL/L (98-107); CHOLESTEROL LEVEL 239 MG/DL (<200); CREATININE FOR GFR 0.73 MG/DL (0.70-1.30); FREE T4 1.33 NG/DL (0.89-1.76); GLOMERULAR FILTRATION RATE > 60.0 (>60); GLUCOSE, FASTING 85 MG/DL (60-100); HDL CHOLESTEROL 23.9 MG/DL (>40); LDL CHOLESTEROL 162.3 MG/DL (<100); NON-HDL-C 215 MG/DL; POTASSIUM SERUM 4.8 MMOL/L (3.5-5.1); SODIUM LEVEL 133 MMOL/L (136-145); THYROID STIMULATING HORMONE 0.915 uIU/ML (0.55-4.78); TOTAL PROTEIN 7.9 G/DL (5.7-8.2); TRIGLYCERIDES LEVEL 264 MG/DL (<150)
[2022-04-28 19:17] LABS: BASOPHILS 1 % (0-1); EOSINOPHILS 5 % (0-3); LYMPHOCYTES 28 % (16-44); METAMYELOCYTES 2 % (0-0); MONOCYTES 3 % (0-5); MYELOCYTES 5 % (0-0); NEUTROPHILS 49 % (28-66); PLATELET ESTIMATE INCREASED (NORMAL); PROMYELOCYTES 1 % (0-0)
== END ==
LOC: M LAB REF 17:20
PROVIDERS: ATTEND Nurse Practitioner Family
DX: Z13.228 Encounter for screening for other metabolic disorders (principal)

== ENCOUNTER → 2022-05-12 | Outpatient (REF) | payer OTHER ==
[2022-05-12 17:10] LABS: BASO # 0.1 10^3/uL (0.0-0.2); BASO % 1.2 % (0.0-1.0); EOS # 0.3 10^3/uL (0.0-0.5); EOS % 2.3 % (0.0-3.0); HEMATOCRIT 44.4 % (42.0-52.0); HEMOGLOBIN 13.9 g/dl (13.5-17.5); LYMPH # 3.5 10^3/uL (1.5-5.0); LYMPH % 31.7 % (24.0-44.0); MEAN CORPUSCULAR HEMOGLOBIN 27.9 pg (27.0-33.0); MEAN CORPUSCULAR HGB CONC 31.3 g/dl (32.0-36.5); MEAN CORPUSCULAR VOLUME 89.2 fl (80.0-96.0); MONO # 0.9 10^3/uL (0.0-0.8); MONO % 8.6 % (2.0-8.0); NEUTROPHILS # 6.1 10^3/uL (1.5-8.5); NEUTROPHILS % 55.1 % (36.0-66.0); PLATELET COUNT, AUTOMATED 407 10^3/uL (150-450); RED BLOOD COUNT 4.98 10^6/uL (4.30-6.10)
== END ==
LOC: M LAB REF 16:13
PROVIDERS: ATTEND Nurse Practitioner Family
DX: R89.9 Unspecified abnormal finding in specimens from other organs, systems and tissues (principal)

== ENCOUNTER → 2022-05-15 | Outpatient (CLI) | payer OTHER | LOC: M RAD 12:54 | PROVIDERS: ATTEND Nurse Practitioner Family | DX: M51.17 Intervertebral disc disorders with radiculopathy, lumbosacral region (principal) ==

== ENCOUNTER → 2022-05-22 | Outpatient (REF) | payer OTHER ==
[2022-05-22 16:49] LABS: BASO # 0.1 10^3/uL (0.0-0.2); BASO % 0.9 % (0.0-1.0); EOS # 0.4 10^3/uL (0.0-0.5); EOS % 3.2 % (0.0-3.0); HEMATOCRIT 47.2 % (42.0-52.0); HEMOGLOBIN 14.8 g/dl (13.5-17.5); LYMPH # 3.1 10^3/uL (1.5-5.0); LYMPH % 22.8 % (24.0-44.0); MEAN CORPUSCULAR HEMOGLOBIN 27.9 pg (27.0-33.0); MEAN CORPUSCULAR HGB CONC 31.4 g/dl (32.0-36.5); MEAN CORPUSCULAR VOLUME 89.1 fl (80.0-96.0); MONO # 0.7 10^3/uL (0.0-0.8); MONO % 5.3 % (2.0-8.0); NEUTROPHILS % 66.9 % (36.0-66.0); PLATELET COUNT, AUTOMATED 360 10^3/uL (150-450); WHITE BLOOD COUNT 13.5 10^3/uL (4.0-10.0)
[2022-05-22 16:59] LABS: APPEARANCE, URINE MANUAL CLEAR (CLEAR); COLOR, URINE MANUAL YELLOW (YELLOW)
[2022-05-22 17:01] LABS: BILIRUBIN, URINE MANUAL NEGATIVE (NEGATIVE); BLOOD URINE MANUAL NEGATIVE (NEGATIVE); GLUCOSE, URINE (UA) MANUAL NEGATIVE (NEGATIVE); KETONE, URINE MANUAL NEGATIVE (NEGATIVE); LEUKOCYTE ESTERASE, URINE MAN NEGATIVE (NEGATIVE); NITRITE, URINE MANUAL NEGATIVE (NEGATIVE); PROTEIN, URINE MANUAL NEGATIVE (NEGATIVE); SPECIFIC GRAVITY,URINE MANUAL 1.025 (1.002-1.035); UROBILINOGEN, URINE MANUAL NORMAL (NORMAL)
[2022-05-22 18:09] LABS: GC DNA AMPLIFICATION NEGATIVE (NEGATIVE)
[2022-05-24 23:08] LABS: PSA TOTAL 1.9 ng/mL (0.0-4.0)
== END ==
LOC: M LAB REF 16:19
PROVIDERS: ATTEND Nurse Practitioner Family
DX: F52.21 Male erectile disorder (principal); Z11.9 Encounter for screening for infectious and parasitic diseases, unspecified; R89.9 Unspecified abnormal finding in specimens from other organs, systems and tissues

== ENCOUNTER 2022-06-05 10:44 | Emergency (ER) | payer MEDICAID, OTHER ==
[~2022-06-05] VITALS: Ht 170.2 cm; Wt 81.8 kg
[~2022-06-05 10:44] MED LIST changes: +ATOR1TAB19; +KETO2SHA8; +NICO-260; +NICO7DIS24 TD
[2022-06-05] MEDS ORDERED: diphenhydrAMINE 50MG/ML VIAL IM ONE (12:20)
[2022-06-05] MEDS ORDERED: HALOPERIDOL 5MG/ML 1ML VIAL IM ONE (12:20)
[2022-06-05] MEDS ORDERED: MIDAZOLAM INJ 2MG/2ML VIAL IM ONE (12:20)
[2022-06-05 13:24] LABS: HEMATOCRIT 40.8 % (42.0-52.0); HEMOGLOBIN 13.1 g/dl (13.5-17.5); MEAN CORPUSCULAR HEMOGLOBIN 28.1 pg (27.0-33.0); MEAN CORPUSCULAR HGB CONC 32.1 g/dl (32.0-36.5); MEAN CORPUSCULAR VOLUME 87.6 fl (80.0-96.0); PLATELET COUNT, AUTOMATED 317 10^3/uL (150-450); RED BLOOD COUNT 4.66 10^6/uL (4.30-6.10); WHITE BLOOD COUNT 22.1 10^3/uL (4.0-10.0)
[2022-06-05 13:48] LABS: APPEARANCE, URINE HAZY (CLEAR); BACTERIA, URINE AUTO NEGATIVE (NEGATIVE); BILIRUBIN, URINE AUTO NEGATIVE (NEGATIVE); BLOOD, URINE BLOOD NEGATIVE (NEGATIVE); COLOR, URINE AMBER (YELLOW); GLUCOSE, URINE (UA) AUTO 1+ mg/dL (NEGATIVE); KETONE, URINE AUTO 1+ mg/dL (NEGATIVE); LEUKOCYTE ESTERASE, URINE AUTO NEGATIVE (NEGATIVE); MUCUS, URINE LARGE (NEGATIVE); NITRITE, URINE AUTO NEGATIVE (NEGATIVE); PROTEIN, URINE AUTO 1+ mg/dL (NEGATIVE); RBC, URINE AUTO 1 /HPF (0-3); SPECIFIC GRAVITY URINE AUTO 1.027 (1.002-1.035); SQUAMOUS EPITHELIAL CELL UR AU 1 /HPF (0-6); WBC, URINE AUTO 8 /HPF (0-3)
[2022-06-05 13:54] LABS: ALBUMIN 3.9 G/DL (3.2-5.2); ALKALINE PHOSPHATASE 92 U/L (46-116); ALT/SGPT 48 U/L (7.0-40); AST/SGOT 69 U/L (<34); BILIRUBIN,TOTAL 2.7 MG/DL (0.3-1.2); BLOOD UREA NITROGEN 21 MG/DL (9-23); CALCIUM LEVEL 9.4 MG/DL (8.5-10.1); CARBON DIOXIDE LEVEL 28 MMOL/L (20-31); CHLORIDE LEVEL 98 MMOL/L (98-107); CREATININE FOR GFR 0.89 MG/DL (0.70-1.30); GLOMERULAR FILTRATION RATE > 60.0 (>60); GLUCOSE, FASTING 90 MG/DL (60-100); POTASSIUM SERUM 4.2 MMOL/L (3.5-5.1); SODIUM LEVEL 135 MMOL/L (136-145); TOTAL PROTEIN 7.6 G/DL (5.7-8.2)
[2022-06-05 14:00] LABS: BARBITURATES URINE NEGATIVE (NEGATIVE); BENZODIAZEPINES URINE NEGATIVE (NEGATIVE); COCAINE METABOLITE URINE NEGATIVE (NEGATIVE); METHADONE URINE NEGATIVE (NEGATIVE); OPIATES URINE NEGATIVE (NEGATIVE); PHENCYCLIDINE URINE NEGATIVE (NEGATIVE)
[2022-06-05 14:02] LABS: AMPHETAMINES LEVEL URINE POSITIVE (NEGATIVE); CANNABINOIDS URINE POSITIVE (NEGATIVE)
[2022-06-05 15:14] LABS: ETHYL ALCOHOL (ETHANOL) 0.007 % (0.000-0.010)
[2022-06-05 15:16] LABS: BILIRUBIN,DIRECT 1.1 MG/DL (<0.4); SALICYLATE LEVEL < 3.0 MG/DL (<30); THYROID STIMULATING HORMONE 0.458 uIU/ML (0.55-4.78)
[2022-06-05 15:31] LABS: HEPATITIS B SURFACE ANTIGEN NEGATIVE (NEGATIVE)
[2022-06-05 15:51] LABS: HEPATITIS B CORE ANTIBODY IGM NEGATIVE (NEGATIVE)
[2022-06-05 15:53] LABS: ACETAMINOPHEN LEVEL < 2.0 UG/ML (10.0-20.0)
[2022-06-06] MEDS ORDERED: VITMTA PO (00:29)
[2022-06-06] MEDS ORDERED: ATOR1TAB19 PO (00:29)
[2022-06-06] MEDS ORDERED: NICO-257 BUC (00:29)
[2022-06-06] MEDS ORDERED: KETO2SHA8 TOP (00:29)
[2022-06-06] MEDS ORDERED: HOME MED LIST COMPLETE! XX SCH (00:35)
[2022-06-06 08:18] LABS: BASO # 0.1 10^3/uL (0.0-0.2); BASO % 0.4 % (0.0-1.0); EOS % 0.1 % (0.0-3.0); LYMPH # 2.5 10^3/uL (1.5-5.0); LYMPH % 11.3 % (24.0-44.0); MONO % 9.3 % (2.0-8.0); NEUTROPHILS # 17.3 10^3/uL (1.5-8.5); NEUTROPHILS % 78.2 % (36.0-66.0)
[2022-06-06 08:22] LABS: MONO # 2.1 10^3/uL (0.0-0.8)
[2022-06-06 09:53] VITALS: BP 127/79
== END 2022-06-06 10:26 | disposition home or self-care (01) ==
LOC: M ED 10:44
DX: F19.10 Other psychoactive substance abuse, uncomplicated (principal); D72.828 Other elevated white blood cell count; F17.200 Nicotine dependence, unspecified, uncomplicated; F12.10 Cannabis abuse, uncomplicated

== ENCOUNTER 2022-07-19 12:07 | Inpatient (IN) | payer OTHER, MEDICAID ==
[~2022-07-19] VITALS: Ht 170.2 cm; Wt 86.8 kg
[~2022-07-19 12:07] MED LIST changes: +ATOR1TAB19 PO; +KETO2SHA8 TOP; +NICO-257 BUC
[2022-07-19] MEDS ORDERED: NS 1,000 ML IV ONE (13:00)
[2022-07-19 13:25] LABS: BASO # 0.1 10^3/uL (0.0-0.2); BASO % 1.1 % (0.0-1.0); EOS # 0.6 10^3/uL (0.0-0.5); EOS % 5.5 % (0.0-3.0); HEMATOCRIT 45.7 % (42.0-52.0); HEMOGLOBIN 14.1 g/dl (13.5-17.5); LYMPH # 2.9 10^3/uL (1.5-5.0); LYMPH % 28.5 % (24.0-44.0); MEAN CORPUSCULAR HEMOGLOBIN 27.5 pg (27.0-33.0); MEAN CORPUSCULAR HGB CONC 30.9 g/dl (32.0-36.5); MEAN CORPUSCULAR VOLUME 89.1 fl (80.0-96.0); MONO % 9.6 % (2.0-8.0); NEUTROPHILS # 5.5 10^3/uL (1.5-8.5); NEUTROPHILS % 54.1 % (36.0-66.0); PLATELET COUNT, AUTOMATED 500 10^3/uL (150-450); RED BLOOD COUNT 5.13 10^6/uL (4.30-6.10); WHITE BLOOD COUNT 10.2 10^3/uL (4.0-10.0)
[2022-07-19 13:54] LABS: BLOOD UREA NITROGEN 12 MG/DL (9-23); CALCIUM LEVEL 8.9 MG/DL (8.5-10.1); CARBON DIOXIDE LEVEL 30 MMOL/L (20-31); CHLORIDE LEVEL 103 MMOL/L (98-107); CREATININE FOR GFR 0.79 MG/DL (0.70-1.30); GLOMERULAR FILTRATION RATE > 60.0 (>60); GLUCOSE, FASTING 99 MG/DL (60-100); POTASSIUM SERUM 4.6 MMOL/L (3.5-5.1); SODIUM LEVEL 138 MMOL/L (136-145)
[2022-07-19 15:49] LABS: ERYTHROCYTE SEDIMENTATION RATE 37 mm/hr (0-15)
[2022-07-19] MEDS ORDERED: VANCOMYCIN HCL 1,750 MG in NS 250 ML IV ONE (15:55)
[2022-07-19] MEDS ORDERED: PIPERACILLIN/TAZOBACTAM SOD 3.375 GM in D5W MINI-BAG PLUS 50 ML IV ONE (15:55)
[2022-07-19] MEDS ORDERED: MAALOX 30 ML SUSP *UDC PO PRN (16:45)
[2022-07-19] MEDS ORDERED: MOM 30ML SUSPENSION UDC PO PRN (16:45)
[2022-07-19] MEDS ORDERED: VANCOMYCIN HCL 1,000 MG, VIAL MATE ADAPTER 1 EACH in NS 250 ML IV SCH (16:45)
[2022-07-19] MEDS ORDERED: HOME MED LIST COMPLETE! XX SCH (16:50)
[2022-07-19] MEDS ORDERED: VANCOMYCIN HCL 1,000 MG, VIAL MATE ADAPTER 1 EACH in D5W 250 ML IV ONE (17:00)
[2022-07-19] MEDS: ACETAMINOPHEN TAB 650MG DOSE (2X325MG) PO PRN (17:28)
[2022-07-19] MEDS ORDERED: VANCOMYCIN HCL 750 MG, VIAL MATE ADAPTER 1 EACH in D5W 250 ML IV ONE (18:00)
[2022-07-19 19:28] LABS: RSV AMPLIFICATION NEGATIVE (NEGATIVE)
[2022-07-19 19:47] LABS: HEPATITIS B SURFACE ANTIGEN NEGATIVE (NEGATIVE)
[2022-07-19 19:59] LABS: HIV 1&2 SCREEN CENTAUR NEGATIVE (NEGATIVE)
[2022-07-19 20:08] LABS: HEPATITIS B CORE ANTIBODY IGM NEGATIVE (NEGATIVE)
[2022-07-19 20:27] LABS: HEPATITIS C VIRUS ABY INDEX 2.7 INDEX (<0.8)
[2022-07-19 20:43] VITALS: BP 121/60
[2022-07-19] MEDS: DOCUSATE SODIUM 100MG CAPSULE PO SCH (21:50)
[2022-07-19] MEDS: PIPERACILLIN/TAZOBACTAM SOD 3.375 GM in D5W MINI-BAG PLUS 50 ML IV SCH (21:50)
[2022-07-19] MEDS: VANCOMYCIN HCL 750 MG, VIAL MATE ADAPTER 1 EACH in D5W 250 ML IV SCH (23:24)
[2022-07-20] MEDS: VANCOMYCIN HCL 750 MG, VIAL MATE ADAPTER 1 EACH in D5W 250 ML IV SCH ×3 (00:45→12:16)
[2022-07-20] MEDS: PIPERACILLIN/TAZOBACTAM SOD 3.375 GM in D5W MINI-BAG PLUS 50 ML IV SCH ×2 (04:06→09:09)
[2022-07-20 05:21] LABS: RSV AMPLIFICATION NEGATIVE (NEGATIVE)
[2022-07-20 05:30] VITALS: BP 109/62
[2022-07-20 06:58] LABS: BLOOD UREA NITROGEN 7 MG/DL (9-23); CARBON DIOXIDE LEVEL 25 MMOL/L (20-31); CHLORIDE LEVEL 107 MMOL/L (98-107); CREATININE FOR GFR 0.75 MG/DL (0.70-1.30); GLOMERULAR FILTRATION RATE > 60.0 (>60); GLUCOSE, FASTING 100 MG/DL (60-100); MAGNESIUM LEVEL 2.1 MG/DL (1.8-2.4); POTASSIUM SERUM 4.2 MMOL/L (3.5-5.1); SODIUM LEVEL 139 MMOL/L (136-145)
[2022-07-20 06:59] LABS: BASO # 0.1 10^3/uL (0.0-0.2); BASO % 1.2 % (0.0-1.0); EOS # 0.6 10^3/uL (0.0-0.5); EOS % 6.7 % (0.0-3.0); HEMATOCRIT 41.2 % (42.0-52.0); HEMOGLOBIN 13.2 g/dl (13.5-17.5); LYMPH # 2.2 10^3/uL (1.5-5.0); LYMPH % 25.8 % (24.0-44.0); MEAN CORPUSCULAR HEMOGLOBIN 28.3 pg (27.0-33.0); MEAN CORPUSCULAR VOLUME 88.4 fl (80.0-96.0); MONO # 0.9 10^3/uL (0.0-0.8); MONO % 10.6 % (2.0-8.0); NEUTROPHILS # 4.5 10^3/uL (1.5-8.5); NEUTROPHILS % 54.6 % (36.0-66.0); PLATELET COUNT, AUTOMATED 417 10^3/uL (150-450); RED BLOOD COUNT 4.66 10^6/uL (4.30-6.10); WHITE BLOOD COUNT 8.3 10^3/uL (4.0-10.0)
[2022-07-20] MEDS ORDERED: AMOX875T2 PO (08:50)
[2022-07-20] MEDS ORDERED: PROB250C PO (08:50)
[2022-07-20] MEDS ORDERED: DOXY-444 PO (08:50)
[2022-07-20] MEDS ORDERED: MULTIVITAMINS/MINERALS THERAP 1 TAB PO SCH (09:00)
[2022-07-20] MEDS ORDERED: ENOXAPARIN 40MG/0.4ML SYRINGE (J1650 PER 10MG) SC SCH (09:00)
[2022-07-20] MEDS: DOCUSATE SODIUM 100MG CAPSULE PO SCH (09:08)
[2022-07-20] MEDS: ACETAMINOPHEN TAB 650MG DOSE (2X325MG) PO PRN (09:17)
== END 2022-07-20 14:40 | disposition home or self-care (01) | DRG 383 ==
LOC: M ED 12:07 → M ED INP 16:44 → M MSPAV 20:41
PROVIDERS: ADMIT Internal Medicine; ATTEND Internal Medicine
DX: L03.113 Cellulitis of right upper limb (principal); B19.20 Unspecified viral hepatitis C without hepatic coma; F16.90 Hallucinogen use, unspecified, uncomplicated; F15.90 Other stimulant use, unspecified, uncomplicated; F17.200 Nicotine dependence, unspecified, uncomplicated; Z20.822 Contact with and (suspected) exposure to COVID-19; Z59.00 Homelessness unspecified

== ENCOUNTER 2022-07-30 08:05 | Emergency (ER) | payer OTHER, MEDICAID ==
[~2022-07-30] VITALS: Ht 170.2 cm; Wt 84.7 kg
[~2022-07-30 08:05] MED LIST changes: +DOXY-444 PO; +PROB250C PO
[2022-07-30 09:18] LABS: BASO # 0.1 10^3/uL (0.0-0.2); BASO % 1.1 % (0.0-1.0); EOS # 0.5 10^3/uL (0.0-0.5); EOS % 4.6 % (0.0-3.0); HEMATOCRIT 41.4 % (42.0-52.0); HEMOGLOBIN 13.3 g/dl (13.5-17.5); LYMPH # 3.9 10^3/uL (1.5-5.0); LYMPH % 34.8 % (24.0-44.0); MEAN CORPUSCULAR HEMOGLOBIN 28.3 pg (27.0-33.0); MEAN CORPUSCULAR HGB CONC 32.1 g/dl (32.0-36.5); MEAN CORPUSCULAR VOLUME 88.1 fl (80.0-96.0); MONO # 1.2 10^3/uL (0.0-0.8); MONO % 10.5 % (2.0-8.0); NEUTROPHILS # 5.5 10^3/uL (1.5-8.5); NEUTROPHILS % 48.5 % (36.0-66.0); PLATELET COUNT, AUTOMATED 407 10^3/uL (150-450); WHITE BLOOD COUNT 11.3 10^3/uL (4.0-10.0)
[2022-07-30 09:51] LABS: BLOOD UREA NITROGEN 15 MG/DL (9-23); CALCIUM LEVEL 8.3 MG/DL (8.5-10.1); CARBON DIOXIDE LEVEL 30 MMOL/L (20-31); CHLORIDE LEVEL 103 MMOL/L (98-107); CREATININE FOR GFR 0.72 MG/DL (0.70-1.30); GLOMERULAR FILTRATION RATE > 60.0 (>60); GLUCOSE, FASTING 73 MG/DL (60-100); POTASSIUM SERUM 4.3 MMOL/L (3.5-5.1); SODIUM LEVEL 138 MMOL/L (136-145)
[2022-07-30] MEDS ORDERED: DALBAVANCIN 1,500 MG in D5W 250 ML IV ONE (10:30)
[2022-07-30 11:51] VITALS: BP 122/63
== END 2022-07-30 12:10 | disposition home or self-care (01) ==
LOC: M ED 09:33
DX: L03.113 Cellulitis of right upper limb (principal); F19.10 Other psychoactive substance abuse, uncomplicated; Z86.19 Personal history of other infectious and parasitic diseases; Z79.899 Other long term (current) drug therapy
CPT/HCPCS: 10160; 76882; 80048; 83605; 85025; 87040; 93971; 96365; 99284; J0875

== ENCOUNTER → 2022-08-21 | Outpatient (CLI) | payer OTHER | LOC: M PLALAB 14:01 | PROVIDERS: ATTEND Internal Medicine Infectious Disease | DX: B18.2 Chronic viral hepatitis C (principal) ==

== ENCOUNTER → 2022-11-23 | Outpatient (CLI) | payer OTHER, MEDICAID ==
[2022-11-23 16:24] LABS: ALBUMIN 3.8 G/DL (3.2-5.2); BILIRUBIN,DIRECT 0.3 MG/DL (<0.4); BILIRUBIN,TOTAL 0.9 MG/DL (0.3-1.2); TOTAL PROTEIN 7.1 G/DL (5.7-8.2)
== END ==
LOC: M PLALAB 14:18
PROVIDERS: ATTEND Internal Medicine Infectious Disease
DX: B19.20 Unspecified viral hepatitis C without hepatic coma (principal)

== ENCOUNTER → 2023-04-02 | Outpatient (CLI) | payer MEDICAID, OTHER | LOC: M RAD 13:42 | PROVIDERS: ATTEND Physician Assistant Medical | DX: S02.2XXA Fracture of nasal bones, initial encounter for closed fracture (principal); X58.XXXA Exposure to other specified factors, initial encounter; Y92.9 Unspecified place or not applicable; Y93.9 Activity, unspecified; Y99.9 Unspecified external cause status ==